=== PATIENT | female | born 1965 | race Caucasian/White ===

== ENCOUNTER 2024-09-23 09:16 | Day surgery (SDC) | payer OTHER ==
[~2024-09-23] VITALS: Ht 157.5 cm; Wt 61.6 kg
[~2024-09-23 09:16] MED LIST: NS 500 ML IV ONE
[2024-09-23] MEDS ORDERED: NS 1,000 ML IV ONE (10:02)
[2024-09-23] MEDS ORDERED: propofoL 20 ML IV ONE (11:06)
--- NOTE | 2024-09-23 11:33 | NUR ---
09/23/24 1133 MCKAY GREEN BROUGHT BACK FOR DC INSTRUCTIONS. AT BEDSIDE OF PT.
[2024-09-23 11:34] VITALS: BP 118/55
== END 2024-09-23 11:55 | disposition home or self-care (01) ==
LOC: ORSCSDS 09:16
PROVIDERS: Orthopaedic Surgery
PROC: 01N54ZZ Release Median Nerve, Percutaneous Endoscopic Approach (ICD-10-PCS; principal; 2024-09-23 10:45)
DX: G56.03 Carpal tunnel syndrome, bilateral upper limbs (principal)
CPT/HCPCS: J2704; J7040